=== PATIENT | female | born 1950 | race African-American/Black ===

== ENCOUNTER 2019-01-03 22:14 | Emergency (ER) | payer MEDICARE ==
[2019-01-03 23:17] VITALS: BP 115/55
[2019-01-04] MEDS ORDERED: NORMAL SALINE 500 ML IV ONE (01:59)
--- NOTE | 2019-01-04 02:15 | ER Document Report ---
ED General - General Chief Complaint: Nausea Stated Complaint: POSSIBLE NAUSEA Time Seen by Provider: 01/04/19 01:44 Notes: Patient is a 68-year-old female that comes emergency department for chief complaint of feeling lightheaded, slightly dizzy, and slightly nauseated while she was outside earlier. She states she "got overheated". She came by EMS, received 750 mL's of normal saline and Zofran. She states that after this her symptoms resolved. She states her blood glucose went up "higher than she ever saw before". She is medicated with pills for her diabetes (her blood sugar was 270 initially). She denies chest pain, palpitations, shortness of breath, or any locations of pain. She denies any current symptoms. She is medicated for type 2 diabetes, hypertension, and asthma. TRAVEL OUTSIDE OF THE [place] IN LAST 30 DAYS: No Past Medical History - General Information source: Patient, Friend - Social History Smoking Status: Never Smoker Frequency of alcohol use: None Drug Abuse: None Lives with: Family Family History: Reviewed & Not Pertinent - Past Medical History Cardiac Medical History: Reports: Hx Hypertension Pulmonary Medical History: Reports: Hx Asthma Endocrine Medical History: Reports: Hx Diabetes Mellitus Type 2 - Immunizations Immunizations up to date: Yes Hx Diphtheria, Pertussis, Tetanus Vaccination: Yes Review of Systems - Review of Systems Constitutional: See HPI EENT: No symptoms reported Cardiovascular: See HPI Respiratory: No symptoms reported Gastrointestinal: See HPI Genitourinary: No symptoms reported Female Genitourinary: No symptoms reported Musculoskeletal: No symptoms reported Skin: No symptoms reported Hematologic/Lymphatic: No symptoms reported Neurological/Psychological: No symptoms reported Physical Exam - Vital signs Vitals: Temp Pulse Resp BP Pulse Ox 98.2 F 79 16 115/55 L 96 01/03/19 22:52 01/03/19 22:52 01/03/19 22:52 01/03/19 22:52 01/03/19 22:52 - Notes Notes: GENERAL: Alert, interacts well. No acute distress. HEAD: Normocephalic, atraumatic. EYES: Pupils equal, round, and reactive to light. Extraocular movements intact. ENT: Oral mucosa moist, tongue midline. Oropharynx unremarkable. Airway patent. NECK: Full range of motion. Supple. Trachea midline. LUNGS: Clear to auscultation bilaterally, no wheezes, rales, or rhonchi. No respiratory distress. HEART: Regular rate and rhythm. No murmur ABDOMEN: Soft, non-tender. Non-distended. Bowel sounds present in all 4 quadrants. GENITOURINARY: Deferred EXTREMITIES: Moves all 4 extremities spontaneously. No edema, normal radial and dorsalis pedis pulses bilaterally. No cyanosis. BACK: no cervical, thoracic, lumbar midline tenderness. No saddle anesthesia, normal distal neurovascular exam. Moves all extremities in full range of motion. NEUROLOGICAL: Alert and oriented x3. Normal speech. Cranial nerves II through XII grossly intact. PSYCH: Normal affect, normal mood. SKIN: Warm, dry, normal turgor. No rashes or lesions noted. Course - Re-evaluation Re-evalutation: Patient is very well-appearing. Initially she stated she just wanted to leave, however her family member urged her to stay, I did recommend that she at least get a laboratory work-up to ensure that she is not acidotic or there is not another obvious concerning abnormality contributing to her symptoms. Patient was agreeable after this. CBC unremarkable. Urinalysis indicates dehydration, chemistry shows hyperglycemia without acidosis. Troponin negative. EKG unremarkable with without acute findings. Patient given IV fluids. On reevaluation she states she is still feels good, she is requesting to leave. She has not had any chest pain, palpitations. She agrees to follow-up with primary care and return if she worsens in any way. This was discussed in detail. Patient states understanding and agreement. Stable at time of discharge. - Vital Signs Vital signs: Temp Pulse Resp BP Pulse Ox 98.2 F 79 16 115/55 L 96 01/03/19 22:52 01/03/19 22:52 01/03/19 22:52 01/03/19 22:52 01/03/19 22:52 - Laboratory Result Diagrams: 01/04/19 02:07 01/04/19 02:07 Laboratory results interpreted by me: 01/04/19 01/04/19 01/04/19 02:07 02:07 02:07 MCH 26.6 L RDW 15.1 H BUN 22 H Glucose 169 H Urine Glucose (UA) 500 H - EKG Interpretation by Me Additional EKG results interpreted by me: EKG shows sinus arrhythmia at a rate of 62, left axis deviation, normal QTC, no T wave inversions or ST segment changes in consecutive leads. Discharge - Discharge Clinical Impression: Lightheaded, Nausea, Hyperglycemia Condition: Stable Disposition: HOME, SELF-CARE Additional Instructions: You have been rehydrated. Continue rehydration at home. Continue current medications. Your laboratory evaluation is reassuring otherwise. Follow-up with primary care. Return if you worsen including headache, passing out, chest pain, palpitations, vomiting, or any other concerning or worsening symptoms.
[2019-01-04 02:42] LABS: ABSOLUTE BASOPHILS # (AUTO) 0.1 10^3/uL (0.0-0.2); ABSOLUTE EOSINOPHILS # (AUTO) 0.2 10^3/uL (0.0-0.6); ABSOLUTE LYMPHOCYTES (AUTO) 2.6 10^3/uL (0.5-4.7); ABSOLUTE MONOCYTES (AUTO) 0.6 10^3/uL (0.1-1.4); ABSOLUTE NEUT (AUTO) 5.5 10^3/uL (1.7-8.2); BASOPHILS % (AUTO) 0.6 % (0-2); EOSINOPHILS % (AUTO) 2.3 % (0-6); HEMATOCRIT 37.3 % (36.0-47.0); LYMPHOCYTES % (AUTO) 28.7 % (13-45); MEAN CORPUSCULAR HEMOGLOBIN 26.6 pg (27.0-33.4); MEAN CORPUSCULAR HGB CONC 32.3 g/dL (32.0-36.0); MEAN CORPUSCULAR VOLUME 82 fl (80-97); PLATELET COUNT 231 10^3/uL (150-450); RED BLOOD COUNT 4.53 10^6/uL (3.72-5.28); RED CELL DISTRIBUTION WIDTH 15.1 % (11.5-14.0); SEGMENTED NEUTROPHILS % (AUTO) 61.4 % (42-78); TOTAL CELLS COUNTED % (AUTO) 100 %; WHITE BLOOD COUNT 8.9 10^3/uL (4.0-10.5)
[2019-01-04 02:53] LABS: APPEARANCE,URINE CLEAR; BILIRUBIN,URINE NEGATIVE (NEGATIVE); COLOR,URINE DARK YELLOW; GLUCOSE, URINE 500 mg/dL (NEGATIVE); KETONES,URINE NEGATIVE (NEGATIVE); URINE SPECIFIC GRAVITY 1.023
[2019-01-04 02:54] LABS: ALANINE AMINOTRANSFERASE 14 U/L (9-52); ALBUMIN 3.9 g/dL (3.5-5.0); ALKALINE PHOSPHATASE 96 U/L (38-126); ANION GAP 11 (5-19); ASPARTATE AMINO TRANSFERASE 21 U/L (14-36); BILIRUBIN,DIRECT 0.2 mg/dL (0.0-0.4); BILIRUBIN,TOTAL 0.3 mg/dL (0.2-1.3); BLOOD UREA NITROGEN 22 mg/dL (7-20); CALCIUM 9.5 mg/dL (8.4-10.2); CARBON DIOXIDE 26 mmol/L (22-30); CHLORIDE 103 mmol/L (98-107); GLUCOSE 169 mg/dL (75-110); POTASSIUM 4.4 mmol/L (3.6-5.0); SODIUM 139.6 mmol/L (137-145); TOTAL PROTEIN 6.5 g/dL (6.3-8.2)
[2019-01-04 02:58] LABS: LEUKOCYTE ESTERASE,URINE NEGATIVE (NEGATIVE); NITRITE,URINE NEGATIVE (NEGATIVE); PROTEIN,URINE NEGATIVE (NEGATIVE); UROBILINOGEN,URINE NEGATIVE mg/dL (<2.0)
--- NOTE | 2019-01-04 19:17 | EKG REPORT ---
SEVERITY:- BORDERLINE ECG - SINUS ARRHYTHMIA, RATE 47-72 LEFT AXIS DEVIATION BORDERLINE T ABNORMALITIES, INFERIOR LEADS : Confirmed by: Catherine Carballo 04-Jan-2019 19:15:39
== END 2019-01-04 03:34 | disposition home or self-care (01) ==
LOC: ER 22:14
DX: R42 Dizziness and giddiness (principal); E11.65 Type 2 diabetes mellitus with hyperglycemia; Z79.84 Long term (current) use of oral hypoglycemic drugs; R11.0 Nausea; I10 Essential (primary) hypertension; J45.909 Unspecified asthma, uncomplicated; I49.9 Cardiac arrhythmia, unspecified; Z79.899 Other long term (current) drug therapy
CPT/HCPCS: 36415; 80053; 81001; 84484; 85025; 93005; 93010; 99284